=== PATIENT | male | born 1965 | race Caucasian/White ===

== ENCOUNTER 2019-03-30 11:36 | Day surgery (SDC) | payer BC ==
[~2019-03-30] VITALS: Ht 182.9 cm; Wt 90.7 kg
[2019-03-30] VITALS (14 sets, daily range): BP systolic 131–165; BP diastolic 63–89
[~2019-03-30 11:36] MED LIST: NO HOME MEDS; cefazolin/dext.iso 2gm/100 ML IV ONE; famotidine 20mg tablet PO ONE; ringers solution, lacted 1,000 ML IV SCH
[2019-03-30] MEDS ORDERED: ceFAZolin 1000mg inj ONE (12:30)
[2019-03-30] MEDS ORDERED: BUPIVAcaine/PF 2.5 mg/ml (0.25%) 30ml vial ONE (12:30)
[2019-03-30 12:41] LABS: ISTAT CREATININE 0.9 mg/dL (0.8-1.3); ISTAT HGB 13.6 g/dl (14.0-18.0); ISTAT IONIZED CALCIUM 1.16 mmol/L (1.03-1.32); ISTAT K 4.2 mmol/L (3.5-5.1); POC BUN/CREATININE RATIO 15.6 (5.4-32.0)
[2019-03-30] MEDS ORDERED: fentaNYL/PF 50MCG/1 ML 2ML syringe ONE ×2 (14:13→14:53)
[2019-03-30] MEDS ORDERED: midazolam 2 mg/2 ml injection ONE (14:13)
[2019-03-30] MEDS ORDERED: rocuronium 10mg/ml inj IV ONE (14:15)
[2019-03-30] MEDS ORDERED: LIDOcaine 2% (20mg/ml) 5ml vial ONE (14:15)
[2019-03-30] MEDS ORDERED: propofol inj 20 ML IV ONE (14:15)
[2019-03-30] MEDS ORDERED: sevoflurane 250ml liquid IH ONE (14:21)
[2019-03-30] MEDS ORDERED: ondansetron/PF 4mg/2ml inj ONE (15:10)
[2019-03-30] MEDS ORDERED: dexamethasone sod phosphate 4mg/ml inj. ONE (15:10)
[2019-03-30] MEDS ORDERED: neostigmine methylsulfate 1 MG/ML 10ml vial ONE (15:10)
[2019-03-30] MEDS ORDERED: glycopyrrolate 0.2mg/ml inj ONE (15:10)
[2019-03-30] MEDS ORDERED: hydrALAZINE 20mg/ml inj. IV ONE (15:10)
[2019-03-30] MEDS ORDERED: proCHLORperazine 10 MG/2 ml inj IV PRN (16:00)
[2019-03-30] MEDS ORDERED: ringers solution, lacted 1,000 ML IV SCH (16:00)
[2019-03-30] MEDS ORDERED: meperidine/PF 25mg/ml syringe IV PRN ×3 (16:00)
[2019-03-30] MEDS ORDERED: ondansetron/PF 4mg/2ml inj IV PRN (16:00)
[2019-03-30] MEDS ORDERED: morphine 4 MG/ML inj SYRINge IV PRN ×2 (16:00)
[2019-03-30] MEDS ORDERED: meperidine/PF 50mg/ml syringe ONE (16:13)
--- NOTE | 2019-03-30 16:27 | NUR ---
Received from OR via [facility] , accompanied by Anesthesiologist OLLIE and report given by Anesthesiolgist. PATIENT WITH 2 ABDOMINAL BANDAIDS PRESENT AND ARE CDI. PATIENT WITH 20G PIV IN RIGHT UE RUNNING LR AT 100. VSS. 10L MASK ON WITH 100% SATURATIONS. VSS. Addendum: 03/30/19 at 1640 by Moise Potter RN, RN Amended: Links added.
--- NOTE | 2019-03-30 18:27 | NUR ---
ALL DC CRITERIA HAS BEEN MET. IV TAKEN OUT WITHOUT COMPLICATIONS. ALL INSTRUCTIONS COVERED AND ALL QUESTIONS ANSWERED. DRESSINGS CDI. OUT VIA WHEELCHAIR TO PERSONAL VEHICLE WHERE PATIENT WAS SECURED IN AND DRIVEN HOME BY FAMILY. VOIDED AND TAKEN HOME BY DAUGHTER. PAIN AT A "CONTROLLED LEVEL" PER PATIENT. DOES NOT WISH FOR PAIN MEDICATIONS. Addendum: 03/30/19 at 1856 by Moise Potter RN, RN Amended: Links added.
== END 2019-03-30 18:27 | disposition home or self-care (01) ==
LOC: PAS 11:36
PROVIDERS: ATTEND Surgery
DX: K40.91 Unilateral inguinal hernia, without obstruction or gangrene, recurrent (principal); F17.210 Nicotine dependence, cigarettes, uncomplicated; Z80.1 Family history of malignant neoplasm of trachea, bronchus and lung
CPT/HCPCS: 49651; 80047; 93005; A6258; C1781; J0360; J0690; J1100; J2001; J2175; J2250; J2405; J2704; J2710; J3010; J3490; J7120; A4315